=== PATIENT | male | born 1995 | race Caucasian/White ===

== ENCOUNTER 2021-01-30 12:37 | Emergency (ER) | payer OTHER ==
[~2021-01-30] VITALS: Ht 177.8 cm; Wt 90.9 kg
[2021-01-30 13:22] VITALS: TEMP 97.8
[2021-01-30] MEDS ORDERED: LEXAPRO 5MG5 MG PO (13:33)
[2021-01-30] MEDS ORDERED: IBU800 M1 PO (13:34)
[2021-01-30] MEDS ORDERED: CIPRO 500MG TA500 MG PO (16:45)
[2021-01-30] MEDS ORDERED: NORCO 325 MG-51 TAB PO (16:45)
[2021-01-30 16:56] VITALS: BP 133/87; PULSE 73
== END 2021-01-30 17:03 | disposition home or self-care (01) ==
LOC: COL.ER 12:37
DX: N45.1 Epididymitis (principal)
CPT/HCPCS: J0696